=== PATIENT | male | born 2000 | race Caucasian/White ===

== ENCOUNTER 2019-12-12 11:00 | Emergency (ER) | payer BC ==
[2019-12-12 11:45] VITALS: BP 125/79
[2019-12-12 12:31] LABS: Influenza B Molecular POSITIVE (Negative)
--- NOTE | 2019-12-12 12:44 | UC ---
FLU HPI - HPI Summary HPI Summary: Sore throat, bodyaches w/ headache since yesterday morning. denies fever. Taking tylenol prn; last dose today 0800. no sick contacts. did not get flu shot this yr. - History of Current Complaint Chief Complaint: UCRespiratory Stated Complaint: FLU SYMPTOMS Time Seen by Provider: 12/12/19 12:33 Hx Obtained From: Patient Pain Intensity: 6 Pain Scale Used: 0-10 Numeric Associated Signs & Symptoms: Positive: Sore Throat, Nasal Congestion - Allergy/Home Medications Allergies/Adverse Reactions: Allergies Allergy/AdvReac Type Severity Reaction Status Date / Time No Known Allergies Allergy Verified 12/12/19 11:42 Home Medications: Home Medications Oseltamivir CAP* [Tamiflu CAP*] 75 mg PO BID 5 Days #10 cap 12/12/19 [Rx] PMH/Surg Hx/FS Hx/Imm Hx - Additional Past Medical History Additional PMH: no c hronic illness Previously Healthy: Yes - Surgical History Surgical History: None - Family History Known Family History: Positive: Non-Contributory - Social History Alcohol Use: None Substance Use Type: None Smoking Status (MU): Never Smoked Tobacco Review of Systems All Other Systems Reviewed And Are Negative: Yes Constitutional: Positive: Chills, Fatigue. Negative: Fever ENT: Negative: Sore Throat, Sinus Congestion Respiratory: Negative: Cough Musculoskeletal: Positive: Myalgia Neurological/Mental Status: Positive: Headache. Negative: Weakness Physical Exam Triage Information Reviewed: Yes Appearance: Well-Appearing Vital Signs: Initial Vital Signs Temp 97.7 F 12/12/19 11:42 Pulse 58 12/12/19 11:42 Resp 16 12/12/19 11:42 BP 125/79 12/12/19 11:42 Pulse Ox 99 12/12/19 11:42 Vital Signs Reviewed: Yes Eyes: Positive: Conjunctiva Clear ENT: Positive: Pharynx normal, TMs normal, Uvula midline Neck: Positive: Supple, Nontender, No Lymphadenopathy Respiratory Exam: Normal Cardiovascular Exam: Normal Neurological: Positive: Alert Skin: Negative: Rashes Flu Course/Dx - Course Course Of Treatment: Viral syndrome symptoms, acute. + rapid flu today. vitals good and exam unremarkable. he did want tamiflu. disc hand hygiene and recommended yearly flu vaccines. disc side effects of tamiflu. - Differential Dx/Diagnosis Differential Diagnosis/HQI/PQRI: Influenza, Upper Respiratory Infection, Other Provider Diagnosis: Influenza Discharge ED - Sign-Out/Discharge Documenting (check all that apply): Patient Departure All imaging exams completed and their final reports reviewed: No Studies - Discharge Plan Condition: Good Disposition: HOME Prescriptions: Oseltamivir CAP* [Tamiflu CAP*] 75 mg PO BID 5 Days #10 cap Patient Education Materials: Influenza (DC) Forms: *School Release Referrals: No Primary Care Phys,NOPCP [Primary Care Provider] - Additional Instructions: If worsening please go to the emergency room - Billing Disposition and Condition Condition: GOOD Disposition: Home - Attestation Statements Provider Attestation: Chart has been reviewed. I did not see the patient but was available for consult. EK.
== END 2019-12-12 12:58 | disposition home or self-care (01) ==
LOC: UCCORT 11:00
DX: J11.1 Influenza due to unidentified influenza virus with other respiratory manifestations (principal)
CPT/HCPCS: 99202; G0463